=== PATIENT | female | born 1990 | race Hispanic/Latino ===

== ENCOUNTER → 2016-08-05 | Outpatient (REF) | payer OTHER ==
[~2016-08-05] MED LIST: No medications; PERC5TAB6 PO
== END ==
LOC: M SFHCWAGY 12:17
PROVIDERS: ATTEND Nurse Practitioner Family
DX: Z01.419 Encounter for gynecological examination (general) (routine) without abnormal findings (principal)

== ENCOUNTER → 2018-06-25 | Outpatient (CLI) | payer OTHER ==
[~2018-06-25] MED LIST changes: +PERC5TAB12 PO; -PERC5TAB6 PO
[2018-06-25 15:23] LABS: HEMATOCRIT 38.9 % (36.0-47.0); HEMOGLOBIN 13.3 g/dl (12.0-15.5); MEAN CORPUSCULAR HEMOGLOBIN 28.8 pg (27.0-33.0); MEAN CORPUSCULAR HGB CONC 34.2 g/dl (32.0-36.5); MEAN CORPUSCULAR VOLUME 84.2 fl (80.0-96.0); PLATELET COUNT, AUTOMATED 328 10^3/uL (150-450); RED BLOOD COUNT 4.62 10^6/uL (4.00-5.40); WHITE BLOOD COUNT 10.7 10^3/uL (4.0-10.0)
[2018-06-25 15:28] LABS: TOTAL PROTEIN 24 HOUR URINE 101.5 MG/24HR (50-150); URINE TOTAL PROTEIN 5.8 MG/DL (0-12)
--- NOTE | 2018-06-25 15:31 | REP ---
Clinical: Anatomical evaluation. Comparison: None . Findings: Examination demonstrates a single live intrauterine in transverse (head to maternal right) presentation. motion is identified by technologist. Placenta is noted anterior and grade grade zero without evidence for placenta previa or abruption. Amniotic fluid volume is normal. Cervix measures 3.1 cm in length and appears closed. No evidence for nuchal cord. Gestational age by LMP 18 weeks 1 day with KARSTEN 11/25/2018 . Gestational age by current measurements 18 weeks 6 days with KARSTEN 11/20/2018 . FHR equals 168 beats per minute. BPD 4.3 cm 19 weeks 0 days HC 15.8 cm 18 weeks 5 days AC 13.5 cm 19 weeks 0 days FL 2.9 cm 18 weeks 5 days HL 2.8 cm 19 weeks 1 day HC/AC ratio 1.17 Estimated weight 262 grams ( 78th percentile). Anatomical assessment demonstrates normal structures including cranium, choroid plexus, cavum, cerebellum, lungs, diaphragm, stomach, cord insertion/three-vessel cord, bladder, and lower extremities. Limited evaluation of the posterior fossa, facial features, heart/ventricular outflow tracts, kidneys, spine and upper extremities. Impression: Single live intrauterine in transverse lie demonstrating appropriate interval growth. Anatomical limitations as noted above may warrant reevaluation and follow-up. Electronically Signed by Gelacio Malave MD 06/25/2018 03:22 P
[2018-06-25 15:49] LABS: ALT/SGPT 20 U/L (12-78); BILIRUBIN,TOTAL 0.2 MG/DL (0.2-1.0); CREATININE FOR GFR 0.47 MG/DL (0.55-1.30); GLOMERULAR FILTRATION RATE > 60.0 (>60); LDH LACTATE DEHYDROGENASE 147 U/L (84-246); URIC ACID 3.2 MG/DL (2.6-6.0)
== END ==
LOC: M RAD 14:25
PROVIDERS: ATTEND Advanced Practice Midwife
DX: O09.292 Supervision of pregnancy with other poor reproductive or obstetric history, second trimester (principal); Z3A.18 18 weeks gestation of pregnancy

== ENCOUNTER 2018-07-16 17:26 | Emergency (ER) | payer OTHER ==
[~2018-07-16] VITALS: Ht 162.6 cm; Wt 87.3 kg
[2018-07-16] MEDS ORDERED: NS 1,000 ML IV ONE (18:00)
[2018-07-16] MEDS ORDERED: ACETAMINOPHEN 500 MG TAB PO ONE (18:00)
[2018-07-16] MEDS ORDERED: METOCLOPRAMIDE INJ 10MG/2ML VIAL (J2765) IV ONE (18:00)
[2018-07-16] MEDS ORDERED: diphenhydrAMINE INJ 50MG/ML VIAL (J1200) IV ONE (18:00)
[2018-07-16 21:19] VITALS: BP 108/69
== END 2018-07-16 21:26 | disposition home or self-care (01) ==
LOC: M ED 17:26
DX: O99.89 Other specified diseases and conditions complicating pregnancy, childbirth and the puerperium (principal); G43.909 Migraine, unspecified, not intractable, without status migrainosus; Z3A.21 21 weeks gestation of pregnancy
CPT/HCPCS: 96374; 96375; 99284; J1200; J2765

== ENCOUNTER → 2018-07-26 | Outpatient (CLI) | payer OTHER ==
--- NOTE | 2018-07-27 03:12 | REP ---
Clinical: Anatomical evaluation. Comparison: 06/25/2018. Findings: Examination demonstrates a single live intrauterine in cephalic presentation. motion is identified by technologist. Placenta is noted anterior and grade there are grade zero without evidence for placenta previa or abruption. Amniotic fluid volume is normal. Cervix measures 3.1 cm in length and appears closed. No evidence for nuchal cord. Gestational age by LMP 22 weeks 5-day with KARSTEN is 11/24/2018 . Gestational age by current measurements 22 weeks 3-day with KARSTEN is 11/26/2018 . FHR equals 157 beats per minute. Estimated weight 494 grams ( 33rd percentile). Anatomical assessment demonstrates normal structures including cerebellum/posterior fossa, four-chamber heart/ventricular outflow tracts, kidneys, spine, and upper extremities. Impression: 1. Single live intrauterine in cephalic presentation demonstrating appropriate interval growth. 2. In conjunction with prior examination anatomical assessment evaluation appears relatively normal. Incomplete evaluation of the facial features again noted. Electronically Signed by Gelacio Malave MD 07/27/2018 03:03 A
== END ==
LOC: M RAD 17:44
PROVIDERS: ATTEND Specialist
DX: O09.212 Supervision of pregnancy with history of pre-term labor, second trimester (principal); Z3A.22 22 weeks gestation of pregnancy

== ENCOUNTER → 2018-08-27 | Outpatient (CLI) | payer OTHER ==
--- NOTE | 2018-08-27 16:01 | REP ---
REASON FOR EXAM: Followup anatomy. The prior examination failed to identify the facial features. Multiple ultrasonographic images of the gravid uterus show a single living intrauterine gestation in the cephalic presentation. Doppler interrogation of the heart shows a heart rate of 134 beats per minute. The placenta is fundal and not low lying. The subjective amniotic fluid volume is within normal limits. Evaluation of the maternal adnexal spaces shows no abnormalities. A cervical length measurement was not obtained. BPD 6.6 cm = 26 weeks 3 days HC 24.2 cm = 26 weeks 2 days AC 21.0 cm = 25 weeks 4 days FL 4.9 cm = 26 weeks 3 days The estimated weight is 879 grams which is at the 12th percentile for a 27 week 2 day gestational age. facial features were well seen today and are within normal limits. IMPRESSION: Single living intrauterine gestation as described above with an estimated gestational age of 26 weeks 2 days via composite criteria and an estimated date of delivery of 12/01/2018. No anomalies were detected. Electronically Signed by Deejay Huggins DO 08/27/2018 04:47 P
== END ==
LOC: M RAD 10:48
PROVIDERS: ATTEND Specialist
DX: O09.212 Supervision of pregnancy with history of pre-term labor, second trimester (principal); Z3A.26 26 weeks gestation of pregnancy

== ENCOUNTER → 2019-01-04 | Outpatient (CLI) | payer OTHER ==
[2019-01-04 17:12] LABS: BASO % 0.6 % (0.0-1.0); EOS # 0.2 10^3/uL (0.0-0.5); EOS % 2.2 % (0.0-3.0); HEMATOCRIT 40.6 % (36.0-47.0); HEMOGLOBIN 13.4 g/dl (12.0-15.5); LYMPH # 1.9 10^3/uL (1.5-5.0); LYMPH % 25.7 % (24.0-44.0); MEAN CORPUSCULAR HEMOGLOBIN 27.9 pg (27.0-33.0); MEAN CORPUSCULAR VOLUME 84.4 fl (80.0-96.0); MONO # 0.6 10^3/uL (0.0-0.8); MONO % 8.3 % (0.0-5.0); NEUTROPHILS # 4.5 10^3/uL (1.5-8.5); NEUTROPHILS % 63.1 % (36.0-66.0); PLATELET COUNT, AUTOMATED 418 10^3/uL (150-450); RED BLOOD COUNT 4.81 10^6/uL (4.00-5.40); WHITE BLOOD COUNT 7.2 10^3/uL (4.0-10.0)
== END ==
LOC: M SMT 14:36
PROVIDERS: ATTEND Specialist
DX: N93.8 Other specified abnormal uterine and vaginal bleeding (principal)

== ENCOUNTER → 2021-03-06 | Outpatient (CLI) | payer MEDICAID, OTHER ==
[~2021-03-06] MED LIST changes: +IRON65TA PO; +MICR1TAB18 PO; +NAPR-837 PO; +PRENTAB9 PO; +bcp
[2021-03-06 16:12] LABS: PROTEIN, URINE AUTO NEGATIVE (NEGATIVE)
[2021-03-06 16:21] LABS: HEMOGLOBIN 13.1 g/dl (12.0-15.5); MEAN CORPUSCULAR HEMOGLOBIN 26.3 pg (27.0-33.0); MEAN CORPUSCULAR HGB CONC 32.8 g/dl (32.0-36.5); MEAN CORPUSCULAR VOLUME 80.3 fl (80.0-96.0); PLATELET COUNT, AUTOMATED 378 10^3/uL (150-450); RED BLOOD COUNT 4.98 10^6/uL (4.00-5.40); WHITE BLOOD COUNT 9.5 10^3/uL (4.0-10.0)
[2021-03-06 16:53] LABS: ALT/SGPT 15 U/L (12-78); BILIRUBIN,TOTAL 0.3 MG/DL (0.2-1.0); CREATININE FOR GFR 0.53 MG/DL (0.55-1.30); GLOMERULAR FILTRATION RATE > 60.0 (>60); LDH LACTATE DEHYDROGENASE 134 U/L (84-246); URIC ACID 3.6 MG/DL (2.6-6.0)
[2021-03-06 17:43] LABS: HEPATITIS C VIRUS ABY INDEX 0.1 INDEX (<0.8); HIV 1&2 SCREEN CENTAUR NEGATIVE (NEGATIVE)
[2021-03-06 18:19] LABS: GC DNA AMPLIFICATION NEGATIVE (NEGATIVE)
== END ==
LOC: M PLALAB 02-26 14:37
PROVIDERS: ATTEND Specialist
DX: Z34.81 Encounter for supervision of other normal pregnancy, first trimester (principal); Z3A.00 Weeks of gestation of pregnancy not specified

== ENCOUNTER → 2021-05-16 | Outpatient (CLI) | payer OTHER | LOC: M WHC 13:32 | PROVIDERS: ATTEND Specialist | DX: O30.042 Twin pregnancy, dichorionic/diamniotic, second trimester (principal); Z3A.19 19 weeks gestation of pregnancy ==

== ENCOUNTER 2021-06-17 17:04 | Outpatient (CLI) | payer OTHER, MEDICAID ==
[~2021-06-17] VITALS: Ht 165.1 cm; Wt 92.9 kg
[2021-06-17] VITALS (20 sets, daily range): BP systolic 124–172; BP diastolic 77–104
[2021-06-17] MEDS ORDERED: NIFEdipine 10 MG CAP PO STA (17:43)
[2021-06-17] MEDS ORDERED: HOME MED LIST COMPLETE! XX SCH (17:45)
[2021-06-17 18:27] LABS: HEMATOCRIT 38.1 % (36.0-47.0); HEMOGLOBIN 13.4 g/dl (12.0-15.5); MEAN CORPUSCULAR HGB CONC 35.2 g/dl (32.0-36.5); MEAN CORPUSCULAR VOLUME 85.2 fl (80.0-96.0); PLATELET COUNT, AUTOMATED 295 10^3/uL (150-450); RED BLOOD COUNT 4.47 10^6/uL (4.00-5.40); WHITE BLOOD COUNT 9.6 10^3/uL (4.0-10.0)
[2021-06-17] MEDS ORDERED: LABETALOL 100MG/20ML VIAL IV STA (18:43)
[2021-06-17 18:46] LABS: TOTAL PROTEIN,RANDOM URINE 25.7 MG/DL (0.0-12.0)
[2021-06-17 18:47] LABS: ALT/SGPT 16 U/L (12-78); BILIRUBIN,TOTAL 0.3 MG/DL (0.2-1.0); CREATININE FOR GFR 0.55 MG/DL (0.55-1.30); GLOMERULAR FILTRATION RATE > 60.0 (>60); LDH LACTATE DEHYDROGENASE 153 U/L (84-246); URIC ACID 3.9 MG/DL (2.6-6.0)
[2021-06-17] MEDS ORDERED: BETAMETHASONE SOLUSPAN 6MG/ML 5ML VIAL (J0702 PER 3MG) IM SCH (19:00)
[2021-06-17] MEDS ORDERED: LABETALOL 200 MG TAB PO SCH (21:00)
[2021-06-17] MEDS ORDERED: MAGNESIUM *L&D* 4GM/100ML BAG (40MG/ML) IV ONE (21:35)
[2021-06-17] MEDS ORDERED: LR 1,000 ML IV SCH (21:35)
[2021-06-17] MEDS ORDERED: MAG Sulf (OBGYN) 20GM/500ML 20,000 MG in IV 1 EA IV SCH (21:35)
== END 2021-06-17 23:20 | disposition other institution (70) ==
LOC: M LDO 17:04
PROVIDERS: ATTEND Advanced Practice Midwife
DX: O14.92 Unspecified pre-eclampsia, second trimester (principal); O30.042 Twin pregnancy, dichorionic/diamniotic, second trimester; Z87.59 Personal history of other complications of pregnancy, childbirth and the puerperium; Z3A.24 24 weeks gestation of pregnancy
CPT/HCPCS: 59025; 76815; 76816; 82247; 82565; 82570; 83615; 84156; 84450; 84460; 84550; 85027; 87426; 96372; J0702; J3475

== ENCOUNTER 2021-06-26 12:56 | Outpatient (CLI) | payer OTHER, MEDICAID ==
[2021-06-26] VITALS (27 sets, daily range): BP systolic 142–171; BP diastolic 81–105
[~2021-06-26] VITALS: Ht 162.6 cm; Wt 94.3 kg
[2021-06-26] MEDS ORDERED: LABETALOL 100MG/20ML VIAL IV STA ×2 (13:26→20:17)
[2021-06-26] MEDS ORDERED: HOME MED LIST COMPLETE! XX SCH (13:35)
[2021-06-26 14:13] LABS: HEMATOCRIT 36.8 % (36.0-47.0); MEAN CORPUSCULAR HEMOGLOBIN 30.6 pg (27.0-33.0); MEAN CORPUSCULAR HGB CONC 35.3 g/dl (32.0-36.5); MEAN CORPUSCULAR VOLUME 86.6 fl (80.0-96.0); PLATELET COUNT, AUTOMATED 266 10^3/uL (150-450); RED BLOOD COUNT 4.25 10^6/uL (4.00-5.40); WHITE BLOOD COUNT 9.5 10^3/uL (4.0-10.0)
[2021-06-26 14:38] LABS: TOTAL PROTEIN,RANDOM URINE 78.7 MG/DL (0.0-12.0)
[2021-06-26 14:40] LABS: ALT/SGPT 19 U/L (12-78); BILIRUBIN,TOTAL 0.2 MG/DL (0.2-1.0); CREATININE FOR GFR 0.49 MG/DL (0.55-1.30); GLOMERULAR FILTRATION RATE > 60.0 (>60); LDH LACTATE DEHYDROGENASE 170 U/L (84-246); URIC ACID 4.8 MG/DL (2.6-6.0)
[2021-06-26] MEDS ORDERED: MAGNESIUM *L&D* 4GM/100ML BAG (40MG/ML) As Ordered ONE (20:03)
[2021-06-26] MEDS ORDERED: MAGNESIUM SULFATE 4% INJ 20GM/500ML (40MG/ML) As Ordered ONE (20:03)
[2021-06-26] MEDS ORDERED: MAGNESIUM *L&D* 4GM/100ML BAG (40MG/ML) IV ONE (20:05)
[2021-06-26] MEDS ORDERED: MAG Sulf (OBGYN) 20GM/500ML 20,000 MG in IV 1 EA IV SCH (20:05)
[2021-06-26] MEDS ORDERED: LR 1,000 ML IV SCH (20:20)
== END 2021-06-26 21:44 | disposition short-term general hospital (02) ==
LOC: M LDO 12:56
PROVIDERS: ATTEND Advanced Practice Midwife
DX: O14.12 Severe pre-eclampsia, second trimester (principal); O41.02X1 Oligohydramnios, second trimester, fetus 1; O41.02X2 Oligohydramnios, second trimester, fetus 2; O30.042 Twin pregnancy, dichorionic/diamniotic, second trimester; Z87.59 Personal history of other complications of pregnancy, childbirth and the puerperium; Z3A.25 25 weeks gestation of pregnancy
CPT/HCPCS: 76815; 76819; 82247; 82565; 82570; 83615; 84156; 84450; 84460; 84550; 85027; J3475

== ENCOUNTER → 2022-12-10 | Outpatient (REF) | payer OTHER ==
[~2022-12-10] MED LIST changes: -MICR1TAB18 PO; +NORE1TAB94 PO
[2022-12-10 17:25] LABS: BASO % 0.6 % (0.0-1.0); EOS # 0.1 10^3/uL (0.0-0.5); EOS % 1.5 % (0.0-3.0); HEMATOCRIT 40.7 % (36.0-47.0); HEMOGLOBIN 13.5 g/dl (12.0-15.5); LYMPH # 1.4 10^3/uL (1.5-5.0); LYMPH % 22.9 % (24.0-44.0); MEAN CORPUSCULAR HEMOGLOBIN 27.8 pg (27.0-33.0); MEAN CORPUSCULAR HGB CONC 33.2 g/dl (32.0-36.5); MEAN CORPUSCULAR VOLUME 83.7 fl (80.0-96.0); MONO # 0.6 10^3/uL (0.0-0.8); MONO % 8.9 % (2.0-8.0); NEUTROPHILS # 4.1 10^3/uL (1.5-8.5); NEUTROPHILS % 65.6 % (36.0-66.0); PLATELET COUNT, AUTOMATED 407 10^3/uL (150-450); RED BLOOD COUNT 4.86 10^6/uL (4.00-5.40); WHITE BLOOD COUNT 6.2 10^3/uL (4.0-10.0)
[2022-12-10 17:35] LABS: THYROID STIMULATING HORMONE 1.194 uIU/ML (0.55-4.78)
[2022-12-10 17:36] LABS: TOTAL 25(OH) VITAMIN D 14.8 NG/ML (20.0-100.0)
[2022-12-10 17:37] LABS: VITAMIN B12 LEVEL 374 PG/ML (211-911)
[2022-12-10 17:38] LABS: ALBUMIN 3.8 G/DL (3.2-5.2); ALKALINE PHOSPHATASE 116 U/L (46-116); ALT/SGPT 36 U/L (7.0-40); AST/SGOT 20 U/L (<34); BILIRUBIN,TOTAL 0.2 MG/DL (0.3-1.2); BLOOD UREA NITROGEN 8 MG/DL (9-23); CALCIUM LEVEL 9.2 MG/DL (8.5-10.1); CARBON DIOXIDE LEVEL 28 MMOL/L (20-31); CHLORIDE LEVEL 104 MMOL/L (98-107); CHOLESTEROL LEVEL 171 MG/DL (<200); CHOLESTEROL RISK RATIO 3.23 (<5); CREATININE FOR GFR 0.67 MG/DL (0.55-1.30); GLOMERULAR FILTRATION RATE > 60.0 (>60); GLUCOSE, FASTING 73 MG/DL (60-100); HDL CHOLESTEROL 52.9 MG/DL (>40); LDL CHOLESTEROL 105.5 MG/DL (<100); NON-HDL-C 118.1 MG/DL; POTASSIUM SERUM 4.4 MMOL/L (3.5-5.1); SODIUM LEVEL 139 MMOL/L (136-145); TOTAL PROTEIN 7.5 G/DL (5.7-8.2); TRIGLYCERIDES LEVEL 63 MG/DL (<150)
[2022-12-10 18:18] LABS: HEMOGLOBIN A1c 4.8 % (4.0-6.0)
== END ==
LOC: M LAB REF 16:19
PROVIDERS: ATTEND Nurse Practitioner Family
DX: G43.909 Migraine, unspecified, not intractable, without status migrainosus (principal); E66.3 Overweight; E55.9 Vitamin D deficiency, unspecified; Z11.9 Encounter for screening for infectious and parasitic diseases, unspecified; R53.83 Other fatigue